=== PATIENT | female | born 1960 | race African-American/Black ===

== ENCOUNTER 2021-02-25 20:53 | Emergency (ER) | payer BC, MEDICAID ==
[~2021-02-25] VITALS: Ht 165.1 cm; Wt 118.0 kg
[2021-02-25 22:32] VITALS: BP 171/96
[2021-02-25] MEDS ORDERED: OFLO5DRO3 RIGHTEYE (23:14)
== END 2021-02-26 00:03 | disposition home or self-care (01) ==
LOC: ER 20:53
DX: H10.9 Unspecified conjunctivitis (principal); I10 Essential (primary) hypertension
CPT/HCPCS: 99281